=== PATIENT | male | born 1980 | race Caucasian/White ===

== ENCOUNTER 2018-02-21 20:32 | Emergency (ER) | payer MEDICAID ==
[2018-02-21] MEDS: KETOROLAC 15 MG INJ IM (23:29)
== END 2018-02-22 00:57 | disposition home or self-care (01) ==
LOC: FTE 02-22 00:57
DX: H66.003 Acute suppurative otitis media without spontaneous rupture of ear drum, bilateral (principal)
CPT/HCPCS: 96372; 99284-25